=== PATIENT | female | born 1945 | race Caucasian/White ===

== ENCOUNTER 2016-09-26 21:41 | Observation (INO) ==
[2016-09-26] MEDS ORDERED: Aspirin 81 MG TAB.CHEW PO ONE (23:35)
[2016-09-26] MEDS ORDERED: 0.9 % Sodium Chloride 500 ML IVC ONE (23:35)
[2016-09-27 00:01] LABS: Basophils # 0.1 K/mcL (0.0-0.2); Basophils % 0.5 %; Eosinophils # 0.2 K/mcL (0.0-0.6); Eosinophils % 1.4 %; Hematocrit 36.8 % (35.3-44.9); Hemoglobin 11.9 g/dL (11.5-15.4); Immature Granulocytes % 0.4 % (0-4); Lymphocytes # 2.1 K/mcL (0.6-4.6); Lymphocytes % 20.4 %; Mean Corpuscular HGB Conc 32.3 g/dL (31.6-35.5); Mean Corpuscular Hemoglobin 29.5 pg (28.0-33.3); Mean Corpuscular Volume 91.1 fL (83.0-100.0); Monocytes # 0.8 K/mcL (0.0-1.3); Monocytes % 7.7 %; Neutrophils # 7.2 K/mcL (1.6-8.9); Platelet Count 205 K/mcL (140-400); Red Blood Count 4.04 M/mcL (3.82-4.97); Red Cell Distribution Width 12.2 % (11.5-14.5); Segmented Neutrophils % 69.6 %
[2016-09-27 00:09] LABS: Activated Partial Thrombo Time 35.4 Seconds (26.0-36.0)
[2016-09-27 00:14] LABS: Calcium 9.4 mg/dL (8.6-10.8); Potassium 4.9 mEq/L (3.5-4.5)
[2016-09-27 00:24] LABS: Prothrombin Time 11.3 Seconds (9.4-12.1)
[2016-09-27 00:50] LABS: Bilirubin,Urine Negative (Negative); Blood,Urine Negative (Negative); Clarity,Urine Clear (Clear); Color,Urine Yellow (Yellow); Glucose,Urine (UA) Normal (Normal); Ketones,Urine Negative (Negative); Leukocyte Esterase,Urine Negative (Negative); Nitrite,Urine Negative (Negative); Protein,Urine Negative (Neg-Trace); Specific Gravity,Urine 1.017 (1.010-1.025); Urobilinogen,Urine Normal (Normal)
--- NOTE | 2016-09-27 02:05 | Emergency Department Note ---
Disposition Clinical Impression: Chest pain Disposition: Admitted As Inpatient Condition: Good Time of Disposition: 03:10 Chest Pain HPI - General Chief Complaint: ED Arrhythmia/Palpitations Stated Complaint: chest pain Time Seen by Provider: 09/26/16 23:35 Source: family Mode of arrival: private vehicle Limitations: no limitations Vital Signs Reviewed: Yes Nursing Notes Reviewed: Yes - History of Present Illness HPI Narrative: 71-year-old female presents to emergency department complaining of mild chest discomfort which began at approximately 2100 this past evening. Patient states that she felt some aching in her chest. She states that this occurred while she was at rest. She denies any similar symptoms in the past. She does not have any history of any cardiac issues. Pt complaint: chest pain Onset (ago): hour(s) Duration: intermittent, now resolved Onset: during rest Pain Location: substernal Severity scale (1-10): 3 Quality: aching, dull Pain Radiation: RUE, LUE Improves with: nothing Worsens with: nothing Associated symptoms: Reports: diaphoresis. Denies: nausea, vomiting, sense of impending doom, syncope Treatments prior to arrival chest pain: none - Related Data Home Medications Medication Instructions Recorded Confirmed Calcium DAILY 09/27/16 Hydrochlorothiazide DAILY 09/27/16 Insulin ASPART [NovoLOG] 09/27/16 Insulin Glargine [Lantus] 14 units HS 09/27/16 09/27/16 Insulin Glargine [Lantus] 20 unit SQ DAILY 09/27/16 09/27/16 Lisinopril DAILY 09/27/16 Pravastatin Sodium DAILY 09/27/16 Vitamin D3 2,000 DAILY 09/27/16 Allergies Allergy/AdvReac Type Severity Reaction Status Date / Time Penicillins Allergy See Verified 09/26/16 21:45 Comments All systems ED: reviewed and negative except as stated. Constitutional: Denies: fever, chills Cardiovascular: Reports: chest pain. Denies: palpitations, dyspnea on exertion Respiratory: Denies: cough, dyspnea Gastrointestinal: Denies: abdominal pain, nausea, vomiting Musculoskeletal: Denies: back pain, neck pain Integumentary: Denies: rash, abrasion, lesions Neurological: Denies: headache Psychiatric: Denies: anxiety, depression, suicidal thoughts, homicidal thoughts Chest Pain PMH - Past Medical History Medical history: Reports: diabetes, hyperlipidemia, renal disease - Social History Smoking Status: Never smoker Alcohol use: Reports: none Drug use: Reports: none Physical Exam - General Limitations: no limitations General appearance: alert, in no apparent distress - Head Head exam: atraumatic, normocephalic, normal inspection - Eye Eye exam: Present: normal appearance, PERRL - ENT ENT exam: normal exam, normal oropharynx, mucous membranes moist - Neck Neck exam: Present: normal inspection, full ROM, trachea midline - Chest Chest inspection: Present: normal inspection, symmetric chest wall rise. Absent : tenderness - Respiratory Respiratory exam: Present: normal lung sounds bilaterally. Absent: respiratory distress, wheezes, accessory muscle use - Cardiovascular Cardiovascular exam: Present: regular rate, normal rhythm, normal heart sounds - Extremities Exam Extremities exam: Present: normal inspection, full ROM. Absent: tenderness, pedal edema - Expanded Lower Extremity Exam Gait: observed and normal - Back Exam Back exam: Present: normal inspection, full ROM. Absent: tenderness - Neurological Exam Neurological exam: Present: alert, oriented X3 - Psychiatric Psychiatric exam: Present: normal affect, normal mood - Skin Skin exam: Present: warm, dry, intact, normal color Course - Consultations Consultation #1: Discussed with hospitalists, he agrees to admission. Patient continues to deny any current chest pain. We will admit for ACS rule out. Time: 03:09 Vital Signs Temperature 97.9 F 09/26/16 21:42 Pulse Rate 89 09/26/16 21:42 Respiratory Rate 20 09/26/16 21:42 Blood Pressure 189/70 09/26/16 21:42 O2 Sat by Pulse Oximetry 100 09/26/16 21:42 Temperature 98.1 F 09/27/16 05:05 Pulse Rate 89 09/27/16 05:25 Respiratory Rate 18 09/27/16 05:25 Blood Pressure 144/76 09/27/16 05:25 O2 Sat by Pulse Oximetry 98 09/27/16 05:25 Oxygen Delivery Oxygen Delivery Room Air Chest Pain - Lab Data Lab results reviewed: Yes I reviewed the patient's lab results. Result diagrams: 09/26/16 23:54 09/26/16 23:54 Lab Results 09/26/16 09/26/16 09/26/16 Range/Units 23:54 23:54 23:54 WBC 10.4 (4.3-11.1) K/mcL RBC 4.04 (3.82-4.97) M/mcL Hgb 11.9 (11.5-15.4) g/dL Hct 36.8 (35.3-44.9) % MCV 91.1 (83.0-100.0) fL MCH 29.5 (28.0-33.3) pg MCHC 32.3 (31.6-35.5) g/dL RDW 12.2 (11.5-14.5) % Plt Count 205 (140-400) K/mcL MPV 10.0 (9.4-12.4) fL Immature Gran % 0.4 (0-4) % Seg Neutrophils % 69.6 % Lymphocytes % 20.4 % Monocytes % 7.7 % Eosinophils % 1.4 % Basophils % 0.5 % Neutrophils # 7.2 (1.6-8.9) K/mcL Lymphocytes # 2.1 (0.6-4.6) K/mcL Monocytes # 0.8 (0.0-1.3) K/mcL Eosinophils # 0.2 (0.0-0.6) K/mcL Basophils # 0.1 (0.0-0.2) K/mcL PT 11.3 (9.4-12.1) Seconds INR 1.0 APTT 35.4 (26.0-36.0) Seconds Sodium (136-145) mEq/L Potassium (3.5-4.5) mEq/L Chloride (98-109) mEq/L Carbon Dioxide (19-29) mEq/L BUN (7-20) mg/dL Creatinine (0.57-1.11) mg/dL Est GFR ( Amer) (> 60) Est GFR (Non-Af Amer) (> 60) BUN/Creatinine Ratio (6-26) Glucose (70-99) mg/dL Calculated Osmolality (280-300) Calcium (8.6-10.8) mg/dL Troponin I (0-0.03) ng/mL B-Natriuretic Peptide 36 (0-100) pg/mL Urine Color (Yellow) Urine Clarity (Clear) Urine pH (5.0-8.0) pH Units Ur Specific [place] (1.010-1.025) Urine Protein (Neg-Trace) mg/dL Urine Glucose (UA) (Normal) mg/dL Urine Ketones (Negative) mg/dL Urine Blood (Negative) Urine Nitrite (Negative) Urine Bilirubin (Negative) Urine Urobilinogen (Normal) mg/dL Ur Leukocyte Esterase (Negative) Ur Culture Indicated? (NO) 09/26/16 09/26/16 09/27/16 Range/Units 23:54 23:54 00:13 WBC (4.3-11.1) K/mcL RBC (3.82-4.97) M/mcL Hgb (11.5-15.4) g/dL Hct (35.3-44.9) % MCV (83.0-100.0) fL MCH (28.0-33.3) pg MCHC (31.6-35.5) g/dL RDW (11.5-14.5) % Plt Count (140-400) K/mcL MPV (9.4-12.4) fL Immature Gran % (0-4) % Seg Neutrophils % % Lymphocytes % % Monocytes % % Eosinophils % % Basophils % % Neutrophils # (1.6-8.9) K/mcL Lymphocytes # (0.6-4.6) K/mcL Monocytes # (0.0-1.3) K/mcL Eosinophils # (0.0-0.6) K/mcL Basophils # (0.0-0.2) K/mcL PT (9.4-12.1) Seconds INR APTT (26.0-36.0) Seconds Sodium 139 (136-145) mEq/L Potassium 4.9 H (3.5-4.5) mEq/L Chloride 105 (98-109) mEq/L Carbon Dioxide 24 (19-29) mEq/L BUN 42 H (7-20) mg/dL Creatinine 1.86 H (0.57-1.11) mg/dL Est GFR ( Amer) 32 L (> 60) Est GFR (Non-Af Amer) 27 L (> 60) BUN/Creatinine Ratio 23 (6-26) Glucose 134 H (70-99) mg/dL Calculated Osmolality 300 (280-300) Calcium 9.4 (8.6-10.8) mg/dL Troponin I 0.01 (0-0.03) ng/mL B-Natriuretic Peptide (0-100) pg/mL Urine Color Yellow (Yellow) Urine Clarity Clear (Clear) Urine pH 6.0 (5.0-8.0) pH Units Ur Specific [place] 1.017 (1.010-1.025) Urine Protein Negative (Neg-Trace) mg/dL Urine Glucose (UA) Normal (Normal) mg/dL Urine Ketones Negative (Negative) mg/dL Urine Blood Negative (Negative) Urine Nitrite Negative (Negative) Urine Bilirubin Negative (Negative) Urine Urobilinogen Normal (Normal) mg/dL Ur Leukocyte Esterase Negative (Negative) Ur Culture Indicated? NO (NO) - Radiology Data Radiology results reviewed: Yes I reviewed the patient's radiology results. - EKG Data EKG attestation: Yes I reviewed and interpreted this EKG. EKG shows normal: sinus rhythm Rate: normal Rhythm: NSR [place]/QRS: normal Interpretation: normal EKG Attestation Statement - Attestation Attestation: Dr Bell note: Pt seen in conjunction w/ physician's assistant professor of psychology Joseph Grant.; Please see his charting for complete documentation; I agree w/ pt's treatment and disposition and spent face to face time with the pt; EKG and troponin results have been reviewed. Patient does not typically have chest pain and had this sudden onset of chest pain and diaphoresis just hours before ER arrival. No pain at the time of my evaluation. Will be admitted for serial troponins and additional evaluation.
[2016-09-27] MEDS ORDERED: Naloxone 0.4 MG/ML INJ IVP PRN (08:13)
[2016-09-27] MEDS ORDERED: Acetaminophen 325 MG TABLET PO PRN (08:13)
[2016-09-27] MEDS ORDERED: Ondansetron 4 MG/2 ML VIAL IVP PRN (08:13)
--- NOTE | 2016-09-27 08:37 | Internal Med History&Physical ---
Date of Encounter: 09/27/16 Time of Encounter: 08:00 Assessment and Plan (1) Chest pain Current visit: Yes Status: Acute place in observation. r/o ACS. Patient at risk for ACS given history of diabetes mellitus, CKD 4, morbid obesity, and hyperlipidemia. first troponin is negative. EKG showed SR, no acute ischemic changes. check troponin and if negative, I will order stress test. Qualifiers: Chest pain type: unspecified Qualified Code(s): R07.9 - Chest pain, unspecified (2) Diabetes mellitus Current visit: Yes Status: Acute Patient takes 20 units of lantus AM and 14 units of lantus at bedtime. ISS. levemir 14 units bid. Qualifiers: Diabetes mellitus type: type 2 Diabetes mellitus complication status: with kidney complications Diabetes mellitus complication detail: with chronic kidney disease Diabetes mellitus halfway insulin use: with halfway use Chronic kidney disease stage: stage 4 (severe) Qualified Code(s): E11.22 - Type 2 diabetes mellitus with diabetic chronic kidney disease; N18.4 - Chronic kidney disease, stage 4 (severe); Z79.4 - lobsterman (current) use of insulin (3) HTN (hypertension) Current visit: Yes Status: Acute hydralazine prn. Qualifiers: Hypertension type: essential hypertension Qualified Code(s): I10 - Essential (primary) hypertension (4) CKD (chronic kidney disease) stage 4, GFR 15-29 ml/min Current visit: Yes Status: Chronic at baseline. close monitoring. avoid nephrotoxins as possible. (5) Morbid obesity with BMI of 40.0-44.9, adult Current visit: No Status: Chronic bmi 40.5. outpt wt loss program Internal Medicine - H&P: HPI Chief complaint: chest pain at 9pm yesterday Admitted From: Home Plans for Post Hospital Care: Home History of present illness: Ms. Grover is a 71 year old female with past medical history of diabetes mellitus type 2, hypertension, CKD 4, morbid obesity, and hyperlipidemia. Yesterday night, patient TO go to the bathroom and suddenly she developed a pressure sensation on her chest that radiated to her left arm and was associated with mild shortness of breath. No diaphoresis. No headache. No syncope. No palpitations. No focal deficit. No abdominal pain. No lower extremity edema. Patient was concerned about a pressure sensation and came to our ER. By the time she got to our ER all her symptoms were gone. She is currently asymptomatic. Past Med Surg Social Fam HX - Past Medical History Medical history: diabetes, hyperlipidemia, renal disease Psychiatric history: no psych history - Past Surgical History Surgical History: cataract, knee replacement - Social History Smoking Status: Never smoker Smokeless Tobacco Status: No Alcohol use: none Drug use: none - Family History Mother Hx Family Endocrine Disorder: Yes (DM) Internal Medicine - H&P: Meds Calcium DAILY 09/27/16 [History] Hydrochlorothiazide DAILY 09/27/16 [History] Insulin ASPART [NovoLOG] 09/27/16 [History] Insulin Glargine [Lantus] 14 units HS 09/27/16 [History] Insulin Glargine [Lantus] 20 unit SQ DAILY 09/27/16 [History] Lisinopril DAILY 09/27/16 [History] Pravastatin Sodium DAILY 09/27/16 [History] Vitamin D3 2,000 DAILY 09/27/16 [History] Allergies Penicillins Allergy (Verified 09/26/16 21:45) See Comments All Systems PM: A 10-system review of systems was performed and is negative for pertinent findings except as documented above in the HPI. - Constitutional Vitals: Temp Pulse Resp BP Pulse Ox 98.1 F 89 18 144/76 98 09/27/16 05:05 09/27/16 05:25 09/27/16 05:25 09/27/16 05:25 09/27/16 05:25 General appearance: Present: cooperative, A&O X 3, morbidly obese, pleasant, no acute distress, answers questions appropriately - Eye Eye exam: Present: PERRL, sclera anicteric - ENT ENT exam: Present: mucous membranes moist - Neck Neck exam general surgery: Present: supple, trachea midline. Absent: lymphadenopathy - Respiratory Respiratory exam: Present: CTAB - Cardiovascular Cardiovascular exam: Present: RRR - GI/Abdominal GI/Abdominal exam: Present: normal bowel sounds, soft. Absent: distended, tenderness - Extremities Exam Extremities exam: Present: normal inspection, radial pulses palpable and symetrical. Absent: pedal edema - Back Exam Back exam: Absent: CVA tenderness (L), CVA tenderness (R) - Neurological Exam Neurological exam: Present: alert, oriented X3, no focal deficits - Skin Skin exam: Absent: cyanosis, pallor, rash Internal Med - H&P Results - Labs CBC & Chem 7: 09/26/16 23:54 09/27/16 09:03
[2016-09-27 09:27] LABS: Calcium 9.2 mg/dL (8.6-10.8); Potassium 4.1 mEq/L (3.5-4.5)
[2016-09-27] MEDS ORDERED: *HR* Dextrose 50 % in Water (Syg) 50 ML SYRINGE IVP PRN (09:37)
[2016-09-27] MEDS ORDERED: Dextrose Gel 15 GM PO PRN ×2 (09:37)
[2016-09-27] MEDS ORDERED: D5% in Water 1,000 ML IV PRN (09:37)
[2016-09-27 09:42] LABS: Magnesium 1.4 mg/dL (1.6-2.6)
[2016-09-27] MEDS ORDERED: Regadenoson 0.4 MG/5 ML SYRINGE IVP ONE (09:50)
--- NOTE | 2016-09-27 12:59 | Electrocardiograph Report ---
[place] [address] Test Date: 2016-09-26 Pat Name: Breanne Grover Department: 102 Room: 3A55 Gender: F [employer]: : 1945 Requested By: Dylan Bell Order Number: [id number] Reading MD: Heather Medina Measurements Intervals [place] Rate: 79 P: 52 MD: 182 QRS: -27 QRSD: 101 T: 30 QT: 358 QTc: 392 Interpretive Statements SINUS RHYTHM LOW QRS VOLTAGE IN PRECORDIAL LEADS MINIMAL VOLTAGE CRITERIA FOR LVH, CONSIDER NORMAL VARIANT ANTEROSEPTAL MYOCARDIAL INFARCTION OF INDETERMINATE AGE Electronically Signed On 09-27-2016 12:57:50 EST by Heather Medina
[2016-09-27] MEDS: hydrALAZINE 25 MG TABLET PO SCH ×2 (14:04→18:11)
[2016-09-27] MEDS: Insulin LISPRO 300 UNITS/3 ML VIAL SQ SCH ×2 (14:04→18:10)
[2016-09-27] MEDS: Aspirin 81 MG TAB.CHEW PO SCH (14:04)
[2016-09-27] MEDS: Insulin DETEMIR 100 UNIT/ML X5UNITS SQ SCH ×2 (14:11→21:16)
[2016-09-27] MEDS ORDERED: Insulin LISPRO 300 UNITS/3 ML VIAL SQ SCH (21:00)
[2016-09-28] MEDS: hydrALAZINE 25 MG TABLET PO SCH ×2 (04:24→09:00)
[2016-09-28 06:05] LABS: Basophils # 0.1 K/mcL (0.0-0.2); Basophils % 0.6 %; Eosinophils # 0.3 K/mcL (0.0-0.6); Eosinophils % 3.6 %; Hematocrit 35.8 % (35.3-44.9); Hemoglobin 11.7 g/dL (11.5-15.4); Immature Granulocytes % 0.6 % (0-4); Lymphocytes # 2.1 K/mcL (0.6-4.6); Lymphocytes % 26.9 %; Mean Corpuscular HGB Conc 32.7 g/dL (31.6-35.5); Mean Corpuscular Hemoglobin 29.8 pg (28.0-33.3); Mean Corpuscular Volume 91.1 fL (83.0-100.0); Mean Platelet Volume 10.9 fL (9.4-12.4); Monocytes # 0.6 K/mcL (0.0-1.3); Monocytes % 7.4 %; Neutrophils # 4.8 K/mcL (1.6-8.9); Platelet Count 209 K/mcL (140-400); Red Blood Count 3.93 M/mcL (3.82-4.97); Red Cell Distribution Width 12.2 % (11.5-14.5); Segmented Neutrophils % 60.9 %
[2016-09-28 06:22] LABS: Calcium 9.1 mg/dL (8.6-10.8); Potassium 4.5 mEq/L (3.5-4.5)
[2016-09-28] MEDS: Aspirin 81 MG TAB.CHEW PO SCH (09:00)
[2016-09-28] MEDS: Insulin LISPRO 300 UNITS/3 ML VIAL SQ SCH (09:02)
[2016-09-28] MEDS: Insulin DETEMIR 100 UNIT/ML X5UNITS SQ SCH (09:02)
[2016-09-28 10:02] LABS: Magnesium 1.2 mg/dL (1.6-2.6)
--- NOTE | 2016-09-28 10:48 | Nuclear Medicine Stress Report ---
Regadenoson Nuclear 2 day Name: Breanne Grover Date of Study: 09/27/2016 Date: 1945 Ht: 65.0 in Medical Record#: [id number] Age: 71 Wt: 243.0 lb Gender: Female Order #: [id number] Location: [facility] Room: [facility] Supervising Provider: Izaiah Rogers CNP Reading Physician: Brain Painter DO, NITA RUDOLPH FASNC Ordering Physician: German Lr MD Primary Care Physician: Helga Ferrer CNP Stress Technologist: Adalberto Toney CRT Machine Molder Squeeze: Sly Duff Indications: Chest Pain Impression: Pharmacologic stress ECG is negative for ischemia at level of heart rate achieved. Gated EF > 70%. Small sized, mild intensity, fixed inferolateral perfusion defect. Wall motion is normal. These findings are consistent with artifact. Perfusion imaging was negative for ischemia or infarct. History: Hypertension Diabetes Hypercholesteremia Stress Test Summary: Stress Test Type: Pharmacologic Baseline Information: Initial Heart Rate: 88 Blood Pressure: 172/98 Stress Information: Test Terminated Due to (primary): As per protocol Maximum Blood Pressure: 164/80 Maximum Heart Rate: 103 Percent Maximum Heart Rate Achieved: 70 Double Product: [id number] METS Reached: 1 Symptoms: No chest symptoms Nuclear Summary: SPECT myocardial perfusion imaging using Tc99m Sestamibi given intravenously was performed at rest and following cardiac stress testing. The resting images were obtained following initial dose of 31.3 mCi. Following stress an additional dose of 29.9 mCi was given at peak exercise or 30 seconds post regadenoson infusion. Medication Given: Time Medication Dose Units Route Findings: Stress Note * Resting ECG demonstrated normal sinus rhythm. * No baseline arrhythmias were noted. * Pharmacologic stress ECG is negative for ischemia at level of heart rate achieved. * No arrhythmias were noted during stress. * Patient had no chest pain during stress. Hemodynamic responses * Normal hemodynamic responses to pharmacologic stress. Study Quality * Study quality is average. Gated EF > 70% * Gated EF > 70%. Left Ventricle * The left ventricle is not dilated. * Normal wall motion. Inferior Perfusion Rest * The inferolateral segment shows a mild reduction in perfusion. Inferior Perfusion Stress * The inferolateral segment shows a mild reduction in perfusion. TID * No evidence of transient ischemic dilatation. TID ratio = 0.81. Lung Uptake * There is no evidence of increase lung uptake. Updated by Brain Painter DO, RONNI, NITA, DEANNA on 09/28/2016 10:42:31 AM electronically signed on 09/28/2016 10:43:20 AM with status of Final
[2016-09-28 11:11] VITALS: BP 123/68
[2016-09-28] MEDS ORDERED: Magnesium Oxide 400 MG TABLET PO SCH (11:45)
--- NOTE | 2016-09-28 11:50 | Discharge Summary ---
<Dusty Carrillo - Last Filed: 09/28/16 12:53> Date of Encounter: 09/28/16 Time of Encounter: 11:41 - Discharge Diagnosis (1) Chest pain Status: Acute (2) Diabetes mellitus Status: Acute (3) HTN (hypertension) Status: Acute (4) CKD (chronic kidney disease) stage 4, GFR 15-29 ml/min Status: Chronic (5) Morbid obesity with BMI of 40.0-44.9, adult Status: Chronic - Discharge Medications Prescriptions: HydrALAZINE 50 mg PO Q8HR 30 Days Aspirin 81 mg PO DAILY #30 tab.chew Famotidine [Pepcid] 10 mg PO BID #60 tablet Magnesium Oxide [Mag-Ox] 400 mg PO DAILY 7 Days Metoprolol [Lopressor] 12.5 mg PO BID #60 tablet Home Medications: Calcium Carbonate/Vitamin D3 [Calcium 500 mg Chewable Tablet] 1 each PO DAILY [History] Cholecalciferol (Vitamin D3) [Vitamin D3] 2,000 unit PO DAILY 09/27/16 [History] Hydrochlorothiazide 25 mg PO DAILY 09/27/16 [History] Insulin ASPART [NovoLOG] 0 - 15 units SQ TID PRN 09/27/16 [History] Insulin Glargine [Lantus] 14 units HS 09/27/16 [History] Insulin Glargine [Lantus] 20 unit SQ DAILY 09/27/16 [History] Lisinopril [Zestril] 10 mg PO DAILY 09/27/16 [History] Pravastatin Sodium [Pravachol] 80 mg PO DAILY 09/27/16 [History] Aspirin 81 mg PO DAILY #30 tab.chew 09/28/16 [Rx] Famotidine [Pepcid] 10 mg PO BID #60 tablet 09/28/16 [Rx] HydrALAZINE 50 mg PO Q8HR 30 Days 09/28/16 [Rx] Magnesium Oxide [Mag-Ox] 400 mg PO DAILY 7 Days 09/28/16 [Rx] Metoprolol [Lopressor] 12.5 mg PO BID #60 tablet 09/28/16 [Rx] Allergies/Adverse Reactions: Allergies Penicillins Allergy (Verified 09/26/16 21:45) See Comments Procedures/tests Complete & Pending: Procedures Performed prior 72 hours Category Date Time Status NM grace perf SPECT multi [NM] Routine Exams 09/27/16 08:12 Taken SP pharm nuclear stress Routine Y 09/27/16 08:12 Completed Date of admission: 09/27/16 03:39 Primary care physician: Helga Ferrer CNP Discharging clinician: Dusty Carrillo Anticipated date of discharge: 09/28/16 - Patient Status Disposition: Home, Self-Care Condition: Good Functional capacity at discharge: independent ambulation Overall status at discharge: patient is progressing back to baseline - Discharge Instructions Follow Up With: Helga Ferrer CNP [Primary Care Provider] - 10/12/16 1:00 pm - Diet and Activity Activity: increase activity as tolerated Diet: diabetic diet, low fat, low cholesterol, low salt diet Hospital course: Ms. Grover is a 71 year old female with pmh of diabetes and stage 4 CKD who was admitted for chest pain. She had no acute findings on EKG, Troponins were not elevated X 3 and she had a nuclear stress test that did not reveal any signs of ischemia. Of note she had a markedly elevated BP i the 180s on arrival. a low dose of metoprolol tartrate and hydralazine were added to her regimen. She is now well controlled. She has been chest pain free since admission. She dose have low magnesium on todays labs. we will discharge her with 7 days of oral magnesium oxide. We will discharge the patient home today. She has voiced back agrreement and understanding to the above plan. - Time Spent with Patient Total time spent providing and/or coordinating discharge services: Greater than 30 minutes (40 minutes) - Constitutional Vitals: Temp Pulse Resp BP Pulse Ox 98.3 F 58 14 123/68 95 09/28/16 11:09 09/28/16 11:09 09/28/16 11:09 09/28/16 11:09 09/28/16 11:09 General appearance: Present: cooperative, A&O X 3, morbidly obese, pleasant, no acute distress, answers questions appropriately - Head Head exam: Present: atraumatic, normocephalic - Eye Eye exam: Present: PERRL, conjuntiva pink, sclera anicteric Pupils: Present: PERRL - Neck Neck exam general surgery: Present: supple, trachea midline. Absent: lymphadenopathy - Respiratory Respiratory exam: Present: CTAB. Absent: accessory muscle use, rales, rhonchi, wheezes - Cardiovascular Cardiovascular exam: Present: RRR, +S1, +S2. Absent: diastolic murmur, gallop, rubs, systolic murmur - GI/Abdominal GI/Abdominal exam: Present: normal bowel sounds, soft, no peritoneal signs. Absent: distended, tenderness - Extremities Exam Extremities exam: Present: warm, radial pulses palpable and symetrical. Absent : calf tenderness, cyanotic, pedal edema - Skin Skin exam: Present: dry, intact <Blaine Gross H - Last Filed: 09/28/16 13:55> Date of Encounter: 09/28/16 Procedures/tests Complete & Pending: Procedures Performed prior 72 hours Category Date Time Status NM grace perf SPECT multi [NM] Routine Exams 09/27/16 08:12 Taken SP pharm nuclear stress Routine Y 09/27/16 08:12 Completed Date of admission: 09/27/16 03:39 Primary care physician: Helga Ferrer CNP - Patient Status Functional capacity at discharge: independent ambulation Overall status at discharge: patient is progressing back to baseline - Diet and Activity Activity: increase activity as tolerated Diet: diabetic diet Hospital course: Ms. Grover is a 71 year old female - Time Spent with Patient Total time spent providing and/or coordinating discharge services: - Constitutional Vitals: Temp Pulse Resp BP Pulse Ox 98.3 F 58 14 123/68 95 09/28/16 11:09 09/28/16 11:09 09/28/16 11:09 09/28/16 11:09 09/28/16 11:09 - Attending Attestation normal stress test , pepcid started I examined this patient and my medical decision-making was reviewed with the BITUMASTIC APPLIER/PA/Advanced Practice Nurse/Resident Physician. I agree with the documented findings, disposition and treatment plan as described except to the extent set forth below.
== END 2016-09-28 15:11 | disposition home or self-care (01) ==
LOC: EMEROO 21:41 → 3ANU 21:41 → SUATTDRO 09-27 03:39 → 3ANU 09-27 04:19
PROVIDERS: ADMIT Internal Medicine; ATTEND Internal Medicine

== ENCOUNTER 2017-04-28 01:31 | Observation (INO) ==
[2017-04-28] MEDS ORDERED: Ondansetron 4 MG/2 ML VIAL IVP ONE (01:44)
[2017-04-28 02:27] LABS: Basophils % 0.3 %; Eosinophils % 0.1 %; Hematocrit 41.3 % (35.3-44.9); Hemoglobin 13.4 g/dL (11.5-15.4); Immature Granulocytes % 0.4 % (0-4); Lymphocytes # 0.9 K/mcL (0.6-4.6); Mean Corpuscular HGB Conc 32.4 g/dL (31.6-35.5); Mean Corpuscular Hemoglobin 29.1 pg (28.0-33.3); Mean Corpuscular Volume 89.6 fL (83.0-100.0); Mean Platelet Volume 11.3 fL (9.4-12.4); Monocytes # 1.1 K/mcL (0.0-1.3); Neutrophils # 13.2 K/mcL (1.6-8.9); Platelet Count 187 K/mcL (140-400); Red Blood Count 4.61 M/mcL (3.82-4.97); Red Cell Distribution Width 12.6 % (11.5-14.5); Segmented Neutrophils % 86.2 %
[2017-04-28 02:33] LABS: INR 1.1; Prothrombin Time 11.6 Seconds (9.4-12.1)
[2017-04-28 02:36] LABS: Activated Partial Thrombo Time 29.6 Seconds (26.0-36.0)
[2017-04-28 02:39] LABS: Calcium 9.9 mg/dL (8.6-10.8); Potassium 4.7 mEq/L (3.5-4.5)
--- NOTE | 2017-04-28 02:59 | Emergency Department Note ---
Disposition Clinical Impression: Pneumonia Qualifiers: Pneumonia type: due to unspecified organism Laterality: left Lung location: lower lobe of lung Qualified Code(s): J18.1 - Lobar pneumonia, unspecified organism Chest pain Qualifiers: Chest pain type: unspecified Qualified Code(s): R07.9 - Chest pain, unspecified Disposition: Admitted As Inpatient Condition: Good Time of Disposition: 03:05 General Adult HPI - General Chief complaint: ED Chest Pain Stated complaint: chest/back pain since 430pm Time Seen by Provider: 04/28/17 02:52 Source: patient Limitations: no limitations Nursing Notes Reviewed: Yes Vital Signs Reviewed: Yes - History of Present Illness HPI Narrative: This is a 71-year-old female presents to the emergency department with a chief complaint of chest pain and shortness of breath that has been going on for 2 days. She states that it has gotten worse since this afternoon. She denies ever having this type of pain before. He has a past medical history of hypertension, hyperlipidemia, diabetes. Pain Scale: 10 - Related Data Home Medications Medication Instructions Recorded Confirmed Cholecalciferol (Vitamin D3) 2,000 unit PO DAILY 09/27/16 04/28/17 [Vitamin D3] Insulin ASPART [NovoLOG] 0 - 15 units SQ TID PRN 09/27/16 04/28/17 Insulin Glargine [Lantus] 20 unit SQ DAILY 09/27/16 04/28/17 Lisinopril [Zestril] 10 mg PO DAILY 09/27/16 04/28/17 Pravastatin Sodium [Pravachol] 80 mg PO DAILY 09/27/16 04/28/17 hydroCHLOROthiazide 25 mg PO DAILY 09/27/16 04/28/17 [Hydrochlorothiazide] Previous Rx's Medication Instructions Recorded Aspirin 81 mg PO DAILY #30 tab.chew 09/28/16 Famotidine [Pepcid] 10 mg PO BID #60 tablet 09/28/16 Magnesium Oxide [Mag-Ox] 400 mg PO DAILY 7 Days 09/28/16 Metoprolol [Lopressor] 12.5 mg PO BID #60 tablet 09/28/16 hydrALAZINE [HydrALAZINE] 50 mg PO Q8HR 30 Days 09/28/16 Allergies Allergy/AdvReac Type Severity Reaction Status Date / Time Penicillins Allergy See Verified 09/15/17 01:42 Comments All systems ED: reviewed and negative except as stated. Constitutional: Denies: fever, chills ENT ED: Denies: throat pain Respiratory: Reports: cough, sputum production Gastrointestinal: Denies: abdominal pain, nausea, vomiting Genitourinary: Denies: urgency, dysuria, frequency Integumentary: Denies: rash Past Medical History - Past Medical History Medical history: Reports: diabetes, hyperlipidemia, hypertension, renal disease Surgical history: Reports: cataract, knee replacement Psychiatric history: Reports: no psych history - Social History Smoking Status: Never smoker Smokeless Tobacco Status: No Alcohol use: Reports: none Drug use: Reports: none Physical Exam - General Limitations: no limitations General appearance: alert, in no apparent distress - Head Head exam: atraumatic, normocephalic - ENT ENT exam: normal exam, mucous membranes dry - Neck Neck exam: Present: trachea midline. Absent: tenderness, meningismus - Chest Chest inspection: Present: normal inspection, symmetric chest wall rise - Respiratory Respiratory exam: Present: normal lung sounds bilaterally. Absent: respiratory distress, accessory muscle use - Cardiovascular Cardiovascular exam: Present: regular rate, normal rhythm, normal heart sounds - Abdominal Exam Abdominal exam: Present: soft, Non-Tender. Absent: distention, guarding, rebound, rigidity - Extremities Exam Extremities exam: Present: normal capillary refill. Absent: pedal edema - Neurological Exam Neurological exam: Present: alert, oriented X3 - Psychiatric Psychiatric exam: Present: normal affect, normal mood - Skin Skin exam: Present: warm, dry, intact. Absent: erythema Course Course Narrative: 70-year-old female presents to the emergency department with a complaint of couple day history of chest pain, coughing, mild shortness of breath. A chest x -ray was obtained as well as a CBC, BMP, troponin, EKG. Chest x-ray revealed left basilar basilar opacities that could represent consolidation. This patient also has leukocytosis of 15.3. Patient is borderline with a pulse of 96 bpm. At this time, I will manage this patient is a pneumonia. I started Levaquin intravenously as well as normal saline. I have spoken to the hospitalist on the phone in regards to admission of this patient. He agrees to accept the admission. Discussed this with the family and they agreed with the plan. The patient is currently hemodynamically stable at this time and not in any respiratory distress. Chest X-Ray 04/28/17 01:43 IMPRESSION: Low lung volumes with left basilar opacities that could represent atelectasis or consolidation. D/ / Doc Perales MD / Doc Perales MD Interpreting Provider: Doc Perales MD Vital Signs Temperature 98.1 F 04/28/17 01:37 Pulse Rate 96 04/28/17 01:37 Respiratory Rate 04/28/17 01:37 Blood Pressure 175/83 04/28/17 01:37 O2 Sat by Pulse Oximetry 04/28/17 01:37 Temperature 98.1 F 04/28/17 01:37 Pulse Rate 96 04/28/17 01:37 Respiratory Rate 04/28/17 01:37 Blood Pressure 175/83 04/28/17 01:37 O2 Sat by Pulse Oximetry 04/28/17 01:37 Oxygen Delivery Oxygen Delivery Room Air Vital Signs Temperature 98.1 F 04/28/17 01:37 Pulse Rate 96 04/28/17 01:37 Respiratory Rate 04/28/17 01:37 Blood Pressure 175/83 04/28/17 01:37 O2 Sat by Pulse Oximetry 04/28/17 01:37 Temperature 98.1 F 04/28/17 01:37 Pulse Rate 96 04/28/17 01:37 Respiratory Rate 04/28/17 01:37 Blood Pressure 175/83 04/28/17 01:37 O2 Sat by Pulse Oximetry 04/28/17 01:37 Oxygen Delivery Oxygen Delivery Room Air Medical Decision Making - Medical Records Medical records reviewed: Yes I reviewed the patient's medical records. - Lab Data Lab results reviewed: Yes I reviewed the patient's lab results. Result diagrams: 04/28/17 02:20 04/28/17 02:20 Lab Results 04/28/17 04/28/17 04/28/17 Range/Units 02:20 02:20 02:20 WBC 15.3 H (4.3-11.1) K/mcL RBC 4.61 (3.82-4.97) M/mcL Hgb 13.4 (11.5-15.4) g/dL Hct 41.3 (35.3-44.9) % MCV 89.6 (83.0-100.0) fL MCH 29.1 (28.0-33.3) pg MCHC 32.4 (31.6-35.5) g/dL RDW 12.6 (11.5-14.5) % Plt Count 187 (140-400) K/mcL MPV 11.3 (9.4-12.4) fL Immature Gran % 0.4 (0-4) % Seg Neutrophils % 86.2 % Lymphocytes % 6.0 % Monocytes % 7.0 % Eosinophils % 0.1 % Basophils % 0.3 % Neutrophils # 13.2 H (1.6-8.9) K/mcL Lymphocytes # 0.9 (0.6-4.6) K/mcL Monocytes # 1.1 (0.0-1.3) K/mcL Eosinophils # 0.0 (0.0-0.6) K/mcL Basophils # 0.0 (0.0-0.2) K/mcL PT 11.6 (9.4-12.1) Seconds INR 1.1 APTT 29.6 (26.0-36.0) Seconds Sodium 134 L (136-145) mEq/L Potassium 4.7 H (3.5-4.5) mEq/L Chloride 99 (98-109) mEq/L Carbon Dioxide 21 (19-29) mEq/L BUN 34 H (7-20) mg/dL Creatinine 1.80 H (0.57-1.11) mg/dL Est GFR ( Amer) 33 L (> 60) Est GFR (Non-Af Amer) 28 L (> 60) BUN/Creatinine Ratio 19 (6-26) Glucose 316 H (70-99) mg/dL Calculated Osmolality 298 (280-300) Calcium 9.9 (8.6-10.8) mg/dL Troponin I (0-0.03) ng/mL 04/28/17 Range/Units 02:20 WBC (4.3-11.1) K/mcL RBC (3.82-4.97) M/mcL Hgb (11.5-15.4) g/dL Hct (35.3-44.9) % MCV (83.0-100.0) fL MCH (28.0-33.3) pg MCHC (31.6-35.5) g/dL RDW (11.5-14.5) % Plt Count (140-400) K/mcL MPV (9.4-12.4) fL Immature Gran % (0-4) % Seg Neutrophils % % Lymphocytes % % Monocytes % % Eosinophils % % Basophils % % Neutrophils # (1.6-8.9) K/mcL Lymphocytes # (0.6-4.6) K/mcL Monocytes # (0.0-1.3) K/mcL Eosinophils # (0.0-0.6) K/mcL Basophils # (0.0-0.2) K/mcL PT (9.4-12.1) Seconds INR APTT (26.0-36.0) Seconds Sodium (136-145) mEq/L Potassium (3.5-4.5) mEq/L Chloride (98-109) mEq/L Carbon Dioxide (19-29) mEq/L BUN (7-20) mg/dL Creatinine (0.57-1.11) mg/dL Est GFR ( Amer) (> 60) Est GFR (Non-Af Amer) (> 60) BUN/Creatinine Ratio (6-26) Glucose (70-99) mg/dL Calculated Osmolality (280-300) Calcium (8.6-10.8) mg/dL Troponin I 0.00 (0-0.03) ng/mL - Radiology Data Radiology results reviewed: Yes I reviewed the patient's radiology results. - EKG Data EKG #1 EKG attestation: Yes I reviewed and interpreted this EKG. EKG results narrative: 04/28/2017 137 Ventricular rate 92 bpm, IN interval 171 ms, QRS duration 104 ms, QT 311 as milliseconds, QTC 362 ms, left axis deviation Sinus rhythm with a ventricular rate of 93 bpm. There is no new signs of ischemia compared to an EKG performed on 09/26/2016. Attestation Statement - Attestation Attestation: I, Benja Bella MD, personally evaluated this patient and discussed their management with the resident physician. I reviewed the resident's note and agree with the documented findings, medical decision making, and plan of care. 71-year-old female presents to the emergency department with a complaint of mid lower chest pain radiating straight through to the back which started about 9 hours prior to arrival and has been constant since onset. Some mild shortness of breath. There is also been a cough. Unsure if she has had a fever. No other radiation of the pain. Some nausea but no vomiting. On examination patient is a well-developed obese elderly female in no acute distress. She is alert and oriented 3. There is no cyanosis or diaphoresis. Breath sounds are equal bilaterally with a few left posterior basilar rales. No wheezes noted. Heart regular rate and rhythm. Abdomen soft and nontender with normal bowel sounds. No acute changes on EKG. Chest x-ray shows low lung volumes with left basilar opacities that could represent atelectasis or consolidation. Labs reviewed. WBC 15. The hospitalist, Dr. Simon, was consulted and accepted the admission of the patient.
[2017-04-28] MEDS ORDERED: Levofloxacin 750 MG/150 ML 750 MG/150 ML BAG IVPB ONE (03:19)
[2017-04-28] MEDS ORDERED: 0.9 % Sodium Chloride 1,000 ML IVC ONE (03:24)
[2017-04-28] MEDS ORDERED: D5% in Water 1,000 ML IVC PRN (04:43)
[2017-04-28] MEDS ORDERED: Dextrose Gel 15 GM PO PRN ×2 (04:43)
[2017-04-28] MEDS ORDERED: *HR* Dextrose 50 % in Water (Syg) 50 ML SYRINGE IVP PRN (04:43)
[2017-04-28] MEDS ORDERED: *HR* Morphine 2 MG/ML SYRINGE IVP PRN (04:44)
[2017-04-28] MEDS ORDERED: Naloxone 0.4 MG/ML INJ IVP PRN (04:44)
[2017-04-28] MEDS ORDERED: Ondansetron 4 MG/2 ML VIAL IVP PRN (04:44)
[2017-04-28] MEDS ORDERED: Acetaminophen 325 MG TABLET PO PRN (04:44)
[2017-04-28] MEDS ORDERED: 0.9 % Sodium Chloride 1,000 ML IVC SCH ×2 (04:45→06:00)
--- NOTE | 2017-04-28 06:03 | Internal Med History&Physical ---
Date of Encounter: 04/28/17 Time of Encounter: 05:15 Assessment and Plan (1) Pneumonia Current visit: Yes Status: Acute Left lower lobe pneumonia - present on admission, likely strep pneumoniae Continue IV Levaquin, DuoNeb breathing treatment Cultures - pending EKG - sinus rhythm with no acute ST-T changes Troponin - negative, cycle troponin Chest x-ray - low lung volumes with left basilar opacities likely consolidation WBC - 15.3 Cardiac telemetry, pulse ox, labs in a.m., continue to monitor closely Qualifiers: Pneumonia type: due to unspecified organism Laterality: left Lung location: lower lobe of lung Qualified Code(s): J18.1 - Lobar pneumonia, unspecified organism (2) Diabetes mellitus Current visit: No Status: Chronic Diabetes mellitus type 2, insulin-dependent, hyperglycemia Continue glucose checks, sliding scale, long-acting insulin Qualifiers: Diabetes mellitus type: type 2 Diabetes mellitus complication status: with kidney complications Diabetes mellitus complication detail: with chronic kidney disease Diabetes mellitus exterminator helper insulin use: with intermediate use Chronic kidney disease stage: stage 4 (severe) Qualified Code(s): E11.22 - Type 2 diabetes mellitus with diabetic chronic kidney disease; N18.4 - Chronic kidney disease, stage 4 (severe); Z79.4 - skilled nursing (current) use of insulin (3) CKD (chronic kidney disease) stage 4, GFR 15-29 ml/min Current visit: No Status: Chronic Chronic kidney disease stage IV with mild acute kidney injury likely due to dehydration and volume depletion Continue IV fluids, repeat labs in a.m. (4) HTN (hypertension) Current visit: No Status: Chronic Essential hypertension, uncontrolled, continue all her meds, monitor Qualifiers: Hypertension type: essential hypertension Qualified Code(s): I10 - Essential (primary) hypertension (5) Morbid obesity Current visit: Yes Status: Chronic Morbid obesity, BMI 38.3, PT and OT consult (6) DVT prophylaxis Current visit: Yes Status: Acute Continue heparin subcutaneous Internal Medicine - H&P: HPI Chief complaint: Chest pain Admitted From: Emergency Dept Plans for Post Hospital Care: Home History of present illness: Ms. Grover is a 71 year old female with past medical history of diabetes, hyperlipidemia, renal disease and hypertension. She presents to the ED with complaints of chest pain. Examination of the room. Patient is awake and alert. Not in any distress. Able to provide all history. Son is at bedside. Patient states her chest pain and abdominal pain have been going on for about 2-3 days. Symptoms gradually worsened. She states it is a dull aching pain. Seems to start on the right side of her abdomen and goes up to her chest. Mainly in the substernal region. Also states is burning type of pain at times. Rates it 6 out of 10. No aggravating or relieving factors. No other associated symptoms. Patient denies shortness of breath, denies palpitations, denies vomiting or diarrhea or fever. Initial workup in the ED is significant for elevated white count, elevated creatinine and chest x-ray reveals low lung volumes with left basilar opacities or consolidations. Patient is being admitted for pneumonia. Troponin is negative. EKG shows normal sinus rhythm. CODE STATUS full code. Past Med Surg Social Fam HX - Past Medical History Medical history: diabetes, hyperlipidemia, hypertension, renal disease Psychiatric history: no psych history - Past Surgical History Surgical History: cataract, knee replacement - Social History Smoking Status: Never smoker Smokeless Tobacco Status: No Alcohol use: none Drug use: none - Family History Mother Hx Family Endocrine Disorder: Yes (DM) Internal Medicine - H&P: Meds Cholecalciferol (Vitamin D3) [Vitamin D3] 2,000 unit PO DAILY 09/27/16 [History] Insulin ASPART [NovoLOG] 0 - 15 units SQ TID PRN 09/27/16 [History] Insulin Glargine [Lantus] 20 unit SQ DAILY 09/27/16 [History] Lisinopril [Zestril] 10 mg PO DAILY 09/27/16 [History] Pravastatin Sodium [Pravachol] 80 mg PO DAILY 09/27/16 [History] hydroCHLOROthiazide [Hydrochlorothiazide] 25 mg PO DAILY 09/27/16 [History] Aspirin 81 mg PO DAILY #30 tab.chew 09/28/16 [Rx] Famotidine [Pepcid] 10 mg PO BID #60 tablet 09/28/16 [Rx] Magnesium Oxide [Mag-Ox] 400 mg PO DAILY 7 Days 09/28/16 [Rx] Metoprolol [Lopressor] 12.5 mg PO BID #60 tablet 09/28/16 [Rx] hydrALAZINE [HydrALAZINE] 50 mg PO Q8HR 30 Days 09/28/16 [Rx] 3 Allergy/AdvReac Type Severity Reaction Status Date / Time Penicillins Allergy See Verified 04/28/17 01:42 Comments All Systems PM: A 10-system review of systems was performed and is negative for pertinent findings except as documented above in the HPI. - Constitutional Constitutional: no fatigue, no fever(s), no weakness - EENT Eyes: no blurry vision - Cardiovascular Cardiovascular ROS IM: chest pain, no dyspnea, no dyspnea on exertion, no edema , no lightheadedness, no orthopnea, no syncope - Respiratory Respiratory: cough, no dyspnea, no hemoptysis, no dyspnea on exertion, no wheezing, no chest congestion - Gastrointestinal Gastrointestinal: no abdominal pain, no constipation, no cramping, no diarrhea, no hematemesis, no hematochezia, no nausea, no vomiting - Genitourinary Genitourinary: no dysuria - Neurological Neurological ROS: no abnormal gait, no confusion, no convulsions, no dizziness, no loss of vision, no numbness, no tingling - Constitutional Vitals: Temp Pulse Resp BP Pulse Ox 98.2 F 111 18 161/76 97 04/28/17 05:41 04/28/17 05:41 04/28/17 05:41 04/28/17 05:41 04/28/17 05:41 General appearance: Present: A&O X 3, morbidly obese, pleasant, no acute distress, answers questions appropriately - Head Head exam: Present: atraumatic - Eye Eye exam: Present: EOMI - ENT ENT exam: Present: mucous membranes dry - Respiratory Respiratory exam: Present: rhonchi (Mild bilateral). Absent: accessory muscle use, rales, wheezes, tachypnea - Cardiovascular Cardiovascular exam: Present: RRR, +S1, +S2, tachycardia - GI/Abdominal GI/Abdominal exam: Present: soft, tenderness (Mild epigastric tenderness). Absent: distended, firm, guarding - Extremities Exam Extremities exam: Present: pedal edema (Mild bilateral), radial pulses palpable and symmetrical. Absent: calf tenderness, cyanotic - Neurological Exam Neurological exam: Present: alert, oriented X3, no focal deficits. Absent: facial droop, speech deficit Internal Med - H&P Results - Labs CBC & Chem 7: 04/28/17 02:20 04/28/17 02:20
[2017-04-28] MEDS: Insulin LISPRO 300 UNITS/3 ML VIAL SQ SCH ×4 (06:23→21:57)
[2017-04-28] MEDS: *HR* Heparin 5,000 UNIT/ML VIAL SQ SCH ×2 (06:23→17:36)
[2017-04-28] MEDS: Ipratropium/Albuterol Neb 3 ML IH SCH ×5 (07:47→23:06)
[2017-04-28] MEDS: Magnesium Oxide 400 MG TABLET PO SCH (08:55)
[2017-04-28] MEDS: hydrALAZINE 25 MG TABLET PO SCH ×2 (08:55→17:35)
[2017-04-28] MEDS: Cholecalciferol (D-3) 1,000 UNIT TABLET PO SCH (08:55)
[2017-04-28] MEDS: Famotidine 20 MG TABLET PO SCH ×2 (08:56→21:56)
[2017-04-28] MEDS: Aspirin 81 MG TAB.CHEW PO SCH (08:56)
[2017-04-28] MEDS: hydroCHLOROthiazide 25 MG TABLET PO SCH (08:56)
[2017-04-28] MEDS ORDERED: NON-FORMULARY MEDICATION 1 EACH EACH (Insulin Glargine [Lantus] 20 UNIT) SQ SCH (09:00)
[2017-04-28] MEDS ORDERED: Insulin DETEMIR 100 UNIT/ML X5UNITS SQ SCH (09:00)
[2017-04-28 11:59] LABS: Bilirubin,Urine Negative (Negative); Blood,Urine Negative (Negative); Clarity,Urine Clear (Clear); Color,Urine Dark Yellow (Yellow); Glucose,Urine (UA) >=1000 mg/dL (Normal); Ketones,Urine Trace mg/dL (Negative); Leukocyte Esterase,Urine Negative (Negative); Nitrite,Urine Negative (Negative); Protein,Urine 30 mg/dL (Neg-Trace); Specific Gravity,Urine 1.022 (1.010-1.025); Urobilinogen,Urine Normal (Normal)
[2017-04-28 12:02] LABS: Bacteria,Urine None Seen per hpf (None-Few); Hyaline Casts,Urine None Seen per lpf (None-Few); RBC,Urine 0-3 per hpf (0-3); Squamous Epithelial Cell,Urine Many per lpf (None-Few); WBC,Urine 0-3 per hpf (0-3)
--- NOTE | 2017-04-28 12:43 | Event Note ---
Date of Encounter: 04/28/17 Time of Encounter: 12:40 Patient is a 71y/o female admitted for LLL PNA. Pt reports of feeling better since her hospitalization. Currently saturating well on room air will continue IV abx, duoneb support monitor WBC and follow up blood cultures continue sliding scale insulin algorithm and will monitor FS and BG Repeat BP: 118/62, will continue home medications Renal function appears to be at baseline, will continue to monitor.
[2017-04-29] MEDS: hydrALAZINE 25 MG TABLET PO SCH ×3 (00:28→16:40)
[2017-04-29] MEDS: Ipratropium/Albuterol Neb 3 ML IH SCH ×5 (03:33→19:55)
[2017-04-29 04:32] LABS: Basophils % 0.2 %; Eosinophils # 0.1 K/mcL (0.0-0.6); Eosinophils % 0.6 %; Hematocrit 37.6 % (35.3-44.9); Hemoglobin 11.9 g/dL (11.5-15.4); Immature Granulocytes % 0.8 % (0-4); Lymphocytes # 1.1 K/mcL (0.6-4.6); Lymphocytes % 8.6 %; Mean Corpuscular HGB Conc 31.6 g/dL (31.6-35.5); Mean Corpuscular Hemoglobin 29.1 pg (28.0-33.3); Mean Corpuscular Volume 91.9 fL (83.0-100.0); Mean Platelet Volume 11.3 fL (9.4-12.4); Monocytes # 0.8 K/mcL (0.0-1.3); Monocytes % 6.3 %; Neutrophils # 10.3 K/mcL (1.6-8.9); Platelet Count 153 K/mcL (140-400); Red Blood Count 4.09 M/mcL (3.82-4.97); Red Cell Distribution Width 13.2 % (11.5-14.5); Segmented Neutrophils % 83.5 %
[2017-04-29 04:48] LABS: Calcium 8.7 mg/dL (8.6-10.8); Magnesium 1.3 mg/dL (1.6-2.6); Potassium 3.8 mEq/L (3.5-4.5)
[2017-04-29] MEDS: *HR* Heparin 5,000 UNIT/ML VIAL SQ SCH ×2 (05:04→16:41)
[2017-04-29] MEDS: Magnesium Oxide 400 MG TABLET PO SCH (07:55)
[2017-04-29] MEDS: Insulin LISPRO 300 UNITS/3 ML VIAL SQ SCH ×6 (07:55→20:55)
[2017-04-29] MEDS: hydroCHLOROthiazide 25 MG TABLET PO SCH (07:56)
[2017-04-29] MEDS: Famotidine 20 MG TABLET PO SCH ×2 (07:56→20:54)
[2017-04-29] MEDS: Cholecalciferol (D-3) 1,000 UNIT TABLET PO SCH (07:56)
[2017-04-29] MEDS: Aspirin 81 MG TAB.CHEW PO SCH (07:56)
[2017-04-29] MEDS ORDERED: Ondansetron 4 MG/2 ML VIAL IVP PRN (08:16)
[2017-04-29] MEDS ORDERED: Magnesium Sulfate 2 GM in D5% in Water 100 ML IVPB ONE (08:26)
[2017-04-29] MEDS: Insulin DETEMIR 100 UNIT/ML X5UNITS SQ SCH (09:56)
--- NOTE | 2017-04-29 13:52 | Internal Med Progress Note ---
Date of Encounter: 04/29/17 Time of Encounter: 13:50 - Assessment and plan (1) Pneumonia Current Visit: Yes Status: Acute Assessment and plan: will continue IV abx leukocytosis persists but improving will f/u blood cultures Zofran prn nausea Qualifiers: Pneumonia type: due to unspecified organism Laterality: left Lung location: lower lobe of lung Qualified Code(s): J18.1 - Lobar pneumonia, unspecified organism (2) Hypomagnesemia Current Visit: Yes Status: Acute Assessment and plan: Mg supplemented will continue to monitor electrolytes and replace as needed (3) CKD (chronic kidney disease) stage 4, GFR 15-29 ml/min Current Visit: No Status: Chronic Assessment and plan: renal function at baseline, will continue to monitor (4) Diabetes mellitus Current Visit: No Status: Chronic Assessment and plan: noted to remain hyperglycemic, requiring 30units of additional insulin coverage in the last 24 hours. increased detemir to 35units qdaily and added humalog 5units TIDAC continue sliding scale insulin algorithm will closely monitor FS and BG ADA diet Qualifiers: Diabetes mellitus type: type 2 Diabetes mellitus complication status: with kidney complications Diabetes mellitus complication detail: with chronic kidney disease Diabetes mellitus care home insulin use: with care home use Chronic kidney disease stage: stage 4 (severe) Qualified Code(s): E11.22 - Type 2 diabetes mellitus with diabetic chronic kidney disease; N18.4 - Chronic kidney disease, stage 4 (severe); Z79.4 - USP (current) use of insulin (5) HTN (hypertension) Current Visit: No Status: Chronic Assessment and plan: BP within acceptable range continue home medications Qualifiers: Hypertension type: essential hypertension Qualified Code(s): I10 - Essential (primary) hypertension (6) Morbid obesity Current Visit: Yes Status: Chronic (7) DVT prophylaxis Current Visit: Yes Status: Acute Assessment and plan: Heparin SQ - Subjective Interval history: Patient seen and examined with family present at bedside. Patient reports of feeling better however has worsening nausea and vomiting. She states she had this prior to hospitalization but it appears to have worsened today. Noted to have one episode in the morning and received Zofran which improved her symptoms. She denies any abdominal pain. States currently she feels comfortably and denies any n/v. - Constitutional Vitals: Temp Pulse Resp BP Pulse Ox 98.2 F 80 16 114/51 93 04/29/17 11:17 04/29/17 11:17 04/29/17 11:52 04/29/17 11:17 04/29/17 11:52 General appearance: Present: cooperative, A&O X 3, morbidly obese, pleasant, no acute distress, answers questions appropriately - Head Head exam: Present: atraumatic, normocephalic - Eye Eye exam: Present: conjuntiva pink, sclera anicteric - Respiratory Respiratory exam: Present: decreased breath sounds. Absent: respiratory distress, wheezes - Cardiovascular Cardiovascular exam: Present: RRR, +S1, +S2. Absent: diastolic murmur, gallop, rubs, systolic murmur - GI/Abdominal GI/Abdominal exam: Present: normal bowel sounds, soft, no peritoneal signs. Absent: distended, tenderness - Extremities Exam Extremities exam: Present: pedal edema, warm, radial pulses palpable and symmetrical. Absent: calf tenderness - Neurological Exam Neurological exam: Present: alert, oriented X3 - Psychiatric Psychiatric exam: Present: normal affect, normal mood Internal Medicine: Result - Labs CBC & Chem 7: 04/29/17 04:22 04/29/17 04:22 Labs: Short CBC 04/29/17 Range/Units 04:22 WBC 12.3 H (4.3-11.1) K/mcL Hgb 11.9 D (11.5-15.4) g/dL Hct 37.6 (35.3-44.9) % Plt Count 153 (140-400) K/mcL Neutrophils # 10.3 H (1.6-8.9) K/mcL BMP 04/29/17 04:22 Sodium 134 L Potassium 3.8 Chloride 100 Carbon Dioxide 24 BUN 30 H Creatinine 1.89 H Glucose 204 H Calcium 8.7 Cardiac Enzymes 04/28/17 04/28/17 Range/Units 13:58 20:16 Troponin I 0.02 0.02 (0-0.03) ng/mL - ABG Interpretation ABG results: PT/INR, D-dimer PT 11.6 Seconds (9.4-12.1) 04/28/17 02:20 Consult Discharge Plan - Plan Referrals: NONE,PCP [Primary Care Provider] -
[2017-04-30] MEDS: Ipratropium/Albuterol Neb 3 ML IH SCH ×4 (00:14→11:47)
[2017-04-30] MEDS: hydrALAZINE 25 MG TABLET PO SCH ×2 (01:08→11:54)
[2017-04-30] MEDS: *HR* Heparin 5,000 UNIT/ML VIAL SQ SCH (04:53)
[2017-04-30] MEDS ORDERED: Levofloxacin 750 MG/150 ML 750 MG/150 ML BAG IVPB SCH (06:00)
[2017-04-30 06:34] LABS: Basophils # 0.1 K/mcL (0.0-0.2); Basophils % 0.6 %; Eosinophils # 0.2 K/mcL (0.0-0.6); Eosinophils % 2.6 %; Hematocrit 33.6 % (35.3-44.9); Hemoglobin 10.9 g/dL (11.5-15.4); Immature Granulocytes % 0.9 % (0-4); Lymphocytes # 1.2 K/mcL (0.6-4.6); Lymphocytes % 15.6 %; Mean Corpuscular HGB Conc 32.4 g/dL (31.6-35.5); Mean Corpuscular Hemoglobin 29.1 pg (28.0-33.3); Mean Corpuscular Volume 89.6 fL (83.0-100.0); Mean Platelet Volume 11.6 fL (9.4-12.4); Monocytes # 0.5 K/mcL (0.0-1.3); Monocytes % 6.3 %; Neutrophils # 5.9 K/mcL (1.6-8.9); Platelet Count 181 K/mcL (140-400); Red Blood Count 3.75 M/mcL (3.82-4.97); Red Cell Distribution Width 13.4 % (11.5-14.5)
[2017-04-30 06:47] LABS: Calcium 8.4 mg/dL (8.6-10.8); Magnesium 1.9 mg/dL (1.6-2.6); Phosphorous 2.4 mg/dL (2.3-4.7); Potassium 3.6 mEq/L (3.5-4.5)
[2017-04-30] MEDS: Insulin LISPRO 300 UNITS/3 ML VIAL SQ SCH ×4 (08:02→11:55)
[2017-04-30] MEDS: Aspirin 81 MG TAB.CHEW PO SCH (08:22)
[2017-04-30] MEDS: Famotidine 20 MG TABLET PO SCH (08:22)
[2017-04-30] MEDS: Cholecalciferol (D-3) 1,000 UNIT TABLET PO SCH (08:23)
[2017-04-30] MEDS: Magnesium Oxide 400 MG TABLET PO SCH (08:23)
[2017-04-30] MEDS: hydroCHLOROthiazide 25 MG TABLET PO SCH (08:39)
[2017-04-30] MEDS: Insulin DETEMIR 100 UNIT/ML X5UNITS SQ SCH (09:33)
[2017-04-30 11:51] VITALS: BP 131/63
--- NOTE | 2017-04-30 12:58 | Discharge Summary ---
Date of Encounter: 04/30/17 Time of Encounter: 12:56 - Discharge Diagnosis (1) Pneumonia Priority: Primary Status: Acute Qualifiers: Pneumonia type: due to unspecified organism Laterality: left Lung location: lower lobe of lung Qualified Code(s): J18.1 - Lobar pneumonia, unspecified organism (2) Hypomagnesemia Priority: Secondary Status: Resolved (3) CKD (chronic kidney disease) stage 4, GFR 15-29 ml/min Priority: Secondary Status: Chronic (4) Diabetes mellitus Priority: Secondary Status: Chronic Qualifiers: Diabetes mellitus type: type 2 Diabetes mellitus complication status: with kidney complications Diabetes mellitus complication detail: with chronic kidney disease Diabetes mellitus terminal press operator insulin use: with terminal press operator use Chronic kidney disease stage: stage 4 (severe) Qualified Code(s): E11.22 - Type 2 diabetes mellitus with diabetic chronic kidney disease; N18.4 - Chronic kidney disease, stage 4 (severe); 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 of insulin (5) HTN (hypertension) Priority: Secondary Status: Chronic Qualifiers: Hypertension type: essential hypertension Qualified Code(s): I10 - Essential (primary) hypertension (6) Morbid obesity Priority: Secondary Status: Chronic (7) DVT prophylaxis Priority: Secondary Status: Acute - Discharge Medications Prescriptions: levoFLOXacin [Levaquin] 750 mg PO Q48H #3 tablet Home Medications: Cholecalciferol (Vitamin D3) [Vitamin D3] 2,000 unit PO DAILY 09/27/16 [History] Insulin ASPART [NovoLOG] 0 - 15 units SQ TID PRN 09/27/16 [History] Insulin Glargine [Lantus] 20 unit SQ DAILY 09/27/16 [History] Lisinopril [Zestril] 10 mg PO DAILY 09/27/16 [History] Pravastatin Sodium [Pravachol] 80 mg PO DAILY 09/27/16 [History] hydroCHLOROthiazide [Hydrochlorothiazide] 25 mg PO DAILY 09/27/16 [History] Aspirin 81 mg PO DAILY #30 tab.chew 09/28/16 [Rx] Famotidine [Pepcid] 10 mg PO BID #60 tablet 09/28/16 [Rx] Magnesium Oxide [Mag-Ox] 400 mg PO DAILY 7 Days 09/28/16 [Rx] Metoprolol [Lopressor] 12.5 mg PO BID #60 tablet 09/28/16 [Rx] levoFLOXacin [Levaquin] 750 mg PO Q48H #3 tablet 04/30/17 [Rx] Allergies/Adverse Reactions: 3 Allergy/AdvReac Type Severity Reaction Status Date / Time Penicillins Allergy See Verified 04/28/17 01:42 Comments Date of admission: 04/28/17 03:39 Primary care physician: PCP BONY Discharging clinician: Sariah Lr Anticipated date of discharge: 04/30/17 - Patient Status Disposition: Home, Self-Care Condition: Good Functional capacity at discharge: independent ambulation Overall status at discharge: patient is back to baseline - Discharge Instructions Follow Up With: NONE,PCP [Primary Care Provider] - Additional Instructions: Please follow up with your primary care physician within five days after your discharge from the hospital. Please continue oral antibiotics as prescribed. Levaquin 750mg every 48hours for a total of ten days. Take the next dose of antibiotic on 05/02/17. The antibiotic dosage has been adjusted according to your kidney function. Take antibiotic with meals. Resume all your home medications as prescribed by your primary care physician. - Diet and Activity Activity: increase activity as tolerated Diet: diabetic diet, low salt diet Hospital course: Ms. Grover is a 71 year old female with PMH of DM, HTN, HLD, CKD who was admitted for Left lower lobe pneumonia. She was started on IV abx. She responded well to therapy and had complete resolution of her presenting symptoms. She reports of living with her son and daughter and states she is able to ambulate without difficulty and would not like any physical therapy or home health services. At this time she is hemodynamically stable and will be discharged to home with oral antibiotics. Patient was seen and examined with son present at bedside. Patient and son both demonstrate understanding of the diagnosis and agree with the discharge care and plan. - Time Spent with Patient Total time spent providing and/or coordinating discharge services: Less than 30 minutes - Constitutional Vitals: Temp Pulse Resp BP Pulse Ox 97.7 F 64 14 131/63 97 04/30/17 11:50 04/30/17 11:50 04/30/17 11:50 04/30/17 11:50 04/30/17 11:50 General appearance: Present: cooperative, A&O X 3, morbidly obese, pleasant, no acute distress, answers questions appropriately - Head Head exam: Present: atraumatic, normocephalic - Eye Eye exam: Present: conjuntiva pink, sclera anicteric - Respiratory Respiratory exam: Present: CTAB. Absent: accessory muscle use, rales, rhonchi, wheezes - Cardiovascular Cardiovascular exam: Present: RRR, +S1, +S2. Absent: diastolic murmur, gallop, rubs, systolic murmur - GI/Abdominal GI/Abdominal exam: Present: normal bowel sounds, soft, no peritoneal signs. Absent: distended, tenderness - Extremities Exam Extremities exam: Present: warm, radial pulses palpable and symmetrical. Absent : calf tenderness - Neurological Exam Neurological exam: Present: alert, oriented X3 - Psychiatric Psychiatric exam: Present: normal affect, normal mood
--- NOTE | 2017-05-02 05:58 | Electrocardiograph Report ---
[place] [id number] Test Date: 2017-04-28 Pat Name: Breanne Grover Department: 102 Room: [facility] Gender: F Aviation Electrical Technician: ana : 1945 Requested By: Benja Bella Order Number: [id number] Reading MD: Alek Pantoja MD Measurements Intervals [place] Rate: 93 P: 25 MT: 171 QRS: -30 QRSD: 104 T: 22 QT: 311 QTc: 362 Interpretive Statements SINUS RHYTHM LEFT VENTRICULAR HYPERTROPHY AND ST-T CHANGE Poor R wave progression Electronically Signed On 05-02-2017 5:57:11 EDT by Alek Pantoja MD
== END 2017-04-30 14:37 | disposition home or self-care (01) ==
LOC: 3NENU 01:31 → EMEROO 01:31 → 3NENU 05:18
PROVIDERS: ADMIT Family Medicine; ATTEND Internal Medicine